=== PATIENT | female | born 1975 | race African-American/Black ===

== ENCOUNTER 2016-11-27 10:05 | Emergency (ER) | payer BC ==
[2016-11-27 09:43] LABS: ASCORBIC ACID (UR NOT ORDER) NEG (NEG); BILIRUBIN, URINE NEGATIVE (NEG); ER URINALYSIS TAT 0 Hrs 00 Mins; KETONE, URINE NEGATIVE (NEG); LEUKOCYTE ESTERASE(NOT OR NEG (NEG); NITRITE (URINE) NEG (NEG); WBC (NOT ORDERED) (RFLEX) 1 (0-5)
[2016-11-27 09:51] LABS: HEMOGLOBIN 11.9 g/dL (12.0-16.0); MEAN CORPUS HGB CONC 31.3 g/dL (32.0-36.0); MEAN CORPUSCULAR HEMOGLOB 25.8 pg (26.0-34.0); MEAN CORPUSCULAR VOLUME 82.4 fL (80-100); MEAN PLATELET VOLUME 10.4 fL (9.2-13.0); PLATELET COUNT 369 10/3/uL (150-400); RBC DISTRIBUTION WIDTH 15.1 % (12.0-16.0); RED CELL COUNT 4.61 10/6/uL (4.0-5.6)
[2016-11-27 09:52] LABS: MANUAL DIFF YES %; WHITE BLOOD CELLS 12.8 10/3/uL (4.5-10.5)
[~2016-11-27 10:05] MED LIST: *DENIES; ALEVE220 MG PO; GLUCPH PO; HORMONE REPLACEMENT TL; HRT; LOP50 PO; MULTIPLE VIT PO; PRILOSEC40 MG PO; T PO; VIVELLE-DOT0.05 MG TOP
[2016-11-27 10:09] LABS: A/G RATIO 0.7 (0.7-1.9); ALBUMIN 3.3 G/DL (3.5-5.0); ALKALINE PHOSPHATASE 72 U/L (45-117); BUN (BLOOD UREA NITROGEN) 15 MG/DL (6-23); CALCIUM, SERUM 9.4 MG/DL (8.5-10.4); CHLORIDE, SERUM 105 MMOL/L (96-112); CO2 (CARBON DIOXIDE) 27 MMOL/L (24-34); CREATININE 0.98 MG/DL (0.55-1.02); GFR AFRICAN AMERICAN 84 ML/MIN (>=60); GFR NON AFRICAN AMERICAN 73 ML/MIN (>=60); GLOBULIN 4.6 G/DL (2.5-4.1); GLUCOSE, SERUM 103 MG/DL (60-99); POTASSIUM, SERUM 4.4 MMOL/L (3.5-5.3); SGOT(AST) 12 U/L (5-40); SGPT(ALT) 26 U/L (5-65); SODIUM, SERUM 141 MMOL/L (135-148); TOTAL BILIRUBIN 0.6 MG/DL (0-1.2); TOTAL PROTEIN 7.9 G/DL (6.0-8.5)
[2016-11-27 10:27] LABS: EOSINOPHILS 3 %; EOSINOPHILS ABSOLUTE (CALC) 0.38 10/3/uL (0.0-0.53); ER DIFF TAT 0 Hrs 41 Mins; HYPOCHROMIA 1+ (3-10/OIF) (0-2/OIF); LYMPHOCYTES 33 %; LYMPHOCYTES ABSOLUTE (CALC) 4.22 10/3/uL (0.67-4.30); MONOCYTES 11 %; MONOCYTES ABSOLUTE (CALC) 1.41 10/3/uL (0.21-1.20); NEUTROPHILS ABSOLUTE (CALC) 6.78 10/3/uL (2.02-8.40); PLATELET ESTIMATE ADQ (ADEQUATE); SEGMENTED NEUTROPHIL (0) 53 %; TOTAL NUCLEATED CELLS 100
== END 2016-11-27 17:25 | disposition home or self-care (01) ==
LOC: ER 10:05
PROVIDERS: Emergency Medicine
DX: R10.31 Right lower quadrant pain (principal); D72.829 Elevated white blood cell count, unspecified; Z90.710 Acquired absence of both cervix and uterus; Z88.0 Allergy status to penicillin; Z79.84 Long term (current) use of oral hypoglycemic drugs; Z79.899 Other long term (current) drug therapy
CPT/HCPCS: 74176; 80053; 81001; 83690; 85025; 96374; 96375; 99284; J1170; J2405